=== PATIENT | female | born 1950 | race African-American/Black ===

== ENCOUNTER → 2018-03-06 | Outpatient (CLI) | payer MEDICARE | END | disposition home or self-care (01) | LOC: PCVCCLINIC 15:30 | PROVIDERS: ATTEND Internal Medicine Cardiovascular Disease | DX: I10 Essential (primary) hypertension (principal); G43.909 Migraine, unspecified, not intractable, without status migrainosus; E78.5 Hyperlipidemia, unspecified; K21.9 Gastro-esophageal reflux disease without esophagitis; G60.9 Hereditary and idiopathic neuropathy, unspecified; F17.210 Nicotine dependence, cigarettes, uncomplicated | CPT/HCPCS: 80061; 93005; G0463 ==

== ENCOUNTER → 2018-04-10 | Outpatient (CLI) | payer MEDICARE ==
--- NOTE | 2018-04-10 13:24 | PCVCIMAG ---
EXAM: BILATERAL RENAL ULTRASOUND AND BILATERAL RENAL DUPLEX INDICATION: Hypertension FINDINGS: Right kidney: Length measures 10.5 cm. No hydronephrosis or extensive renal scarring. 2.0 x 2.1 cm benign cyst mid upper pole medially. Right renal duplex: Adequate technical quality. No sonographic evidence of renal artery stenosis. The aortic to renal artery ratio is 1.2. The renal vein is patent. Left kidney: Length measures 10.6 cm. No hydronephrosis or extensive renal scarring. 1.2 x 1.4 cm benign cyst upper pole. 1.9 x 2.0 cm benign cyst midpole. Left renal duplex: Adequate technical quality. No sonographic evidence of renal artery stenosis. The aortic to renal artery ratio is 1.3. The renal vein is patent. Bladder: No obvious abnormalities. IMPRESSION: No significant renal artery stenosis. No hydronephrosis bilaterally. LOC:[place] [id number]
--- NOTE | 2018-04-10 15:19 | PCVCIMAG ---
APPROVED REPORT Study performed: 04/10/2018 09:13:48 EXAM: Comprehensive 2D, Doppler, and color-flow Echocardiogram Patient Location: Echo lab Room #: 2Status: routine BSA: 2.11 HR: 65 bpmBP: 150/90 mmHg Rhythm: NSR Other Information Study Quality: Good Risk Factors: Cardiac Risk Factors: HTN, Hyperlipidemia Indications Dyspnea Hypertension/HDD 2D Dimensions IVSd: 7.28 (7-11mm)LVOT Diam: 22.65 (18-24mm) LVDd: 45.33 mm PWd: 8.58 (7-11mm)Ascending Ao: 29.11 (22-36mm) LVDs: 28.62 (25-40mm) Left Atrium: 32.30 (27-40mm) Aortic Root: 25.00 mm LV Single Plane 4CH: 57.68 % LV Single Plane 2CH: 61.98 % Biplane EF: 60.2 % Volumes Left Atrial Volume (Systole) Single Plane 4CH: 54.05 mLSingle Plane 2CH: 59.87 mL Biplane LA Volume: 59.00 mLLA ESV Index: 28.00 mL/m2 Aortic Valve AoV Peak Kaz.: 1.30 m/s AO Peak Gr.: 6.77 mmHgLVOT Max P.16 mmHg LVOT Max V: 0.74 m/s CÉSAR Vmax: 2.28 cm2 Mitral Valve E/A Ratio: 1.0 MV Decel. Time: 165.92 ms MV E Max Kaz.: 0.76 m/s MV A Kaz.: 0.78 m/s Pulmonary Valve PV Peak Kaz.: 0.91 m/sPV Peak Gr.: 3.33 mmHg Pulmonary Vein P Vein S: 0.46 m/sP Vein A: 0.29 m/s P Vein D: 0.29 m/sP Vein A Dur.: 93.4 msec P Vein S/D Ratio: 1.59 Tricuspid Valve TR Peak Kaz.: 2.45 m/s TR Peak Gr.: 23.98 mmHg TV Vmax: 0.54 m/sPA Pressure: 31.00 mmHg Left Ventricle The left ventricle is normal size. There is normal LV segmental wall motion. There is normal left ventricular wall thickness. Left ventricular systolic function is normal. The left ventricular ejection fraction is within the normal range. LVEF is 60%. The left ventricular diastolic function is normal. Right Ventricle The right ventricle is normal size. The right ventricular systolic function is normal. Atria The left atrium size is normal. The right atrium size is normal. Aortic Valve Aortic valve is trileaflet. Minimal aortic valve sclerosis. No aortic regurgitation is present. There is no aortic valvular stenosis. Mitral Valve The mitral valve is normal in structure. There is no mitral valve regurgitation noted. No evidence of mitral valve stenosis. Tricuspid Valve The tricuspid valve is normal in structure. Mild tricuspid regurgitation with a pressure of 31 mmHg. Pulmonic Valve The pulmonary valve is normal in structure. There is no pulmonic valvular regurgitation. Great Vessels The aortic root is normal in size. The ascending aorta is normal in size. Aortic arch is normal in caliber. IVC is normal in size and collapses >50% with inspiration. Pericardium There is no pericardial effusion. There is no pleural effusion. <Conclusion> The left ventricle is normal size. LVEF is 60%. The left ventricular diastolic function is normal. The right ventricle is normal size. The left atrium size is normal. Aortic valve is trileaflet. Minimal aortic valve sclerosis. There is no aortic valvular stenosis. There is no mitral valve regurgitation noted. Mild tricuspid regurgitation with a pressure of 31 mmHg. The aortic root is normal in size. There is no pericardial effusion.
== END | disposition home or self-care (01) ==
LOC: PCVCIMAG 12:41
PROVIDERS: ATTEND Internal Medicine Cardiovascular Disease
DX: I10 Essential (primary) hypertension (principal); G43.909 Migraine, unspecified, not intractable, without status migrainosus; I08.2 Rheumatic disorders of both aortic and tricuspid valves
CPT/HCPCS: 76770; 93306; 93975